=== PATIENT | female | born 1945 | race Caucasian/White ===

== ENCOUNTER → 2016-12-05 | Outpatient (CLI) | payer MEDICARE, OTHER ==
[~2016-12-05] MED LIST: ALPRAZOLAM0.25 MG PO; ASACOL400 MG PO; ASPIRIN325 M2 PO; ASPIRIN81 M1 PO; ATENOLOL25 MG PO; B-121000 MCG PO; BRISDELLE7.5 M1 PO; CALCIUM 600600 M2 PO; CALTRATE 600 +1 TA1 PO; CARAFATE1 G1 PO; DICYCLOMINE HCL10 MG PO; K-DUR 1010 MEQ PO; KLOR-CON 1010 MEQ PO; LOMOTIL 0.025 M1 TA1 PO; MECLIZINE HCL12.5 MG PO; METAMUCIL0.52 GM PO; METOPROLOL SR25 MG PO; MICRO-K10 MEQ PO; NEXIUM40 MG PO; PANTOPRAZOLE40 MG PO; SIMVASTATIN10 MG PO; VITAMIN D1000 IU; VITAMIN D1000 IU PO; VITAMIN D50000 UNIT PO; ZOFRAN ODT4 MG SL
== END | disposition home or self-care (01) ==
LOC: RAD 12:00
DX: M47.892 Other spondylosis, cervical region (principal); M48.02 Spinal stenosis, cervical region; Z87.39 Personal history of other diseases of the musculoskeletal system and connective tissue

== ENCOUNTER → 2016-12-12 | Outpatient (CLI) | payer MEDICARE, OTHER | END | disposition home or self-care (01) | LOC: MAMMO 00:12 | DX: Z12.31 Encounter for screening mammogram for malignant neoplasm of breast (principal); Z87.39 Personal history of other diseases of the musculoskeletal system and connective tissue ==

== ENCOUNTER → 2017-06-23 | Outpatient (CLI) | payer MEDICARE, OTHER | END | disposition home or self-care (01) | LOC: RAD 06-20 11:30 | DX: Z13.820 Encounter for screening for osteoporosis (principal); Z78.0 Asymptomatic menopausal state; Z90.710 Acquired absence of both cervix and uterus ==

== ENCOUNTER → 2018-02-18 | Outpatient (CLI) | payer MEDICARE, OTHER ==
[~2018-02-18] MED LIST changes: +HYDROCHLOROTHIA25 M1 PO; +PAXIL10 MG PO
== END | disposition home or self-care (01) ==
LOC: MAMMO 10:04
DX: Z12.31 Encounter for screening mammogram for malignant neoplasm of breast (principal)

== ENCOUNTER → 2018-03-04 | Day surgery (SDC) | payer MEDICARE, OTHER ==
[~2018-03-04] VITALS: Ht 167.6 cm
--- NOTE | ~2018-03-04 | O ---
[place], [place] OPERATIVE NOTE NAME: TEA LOREDO UNIT #: [id number] ROOM: DOCTOR: CHALINO GALLOWAY MD BIRTHDATE: [birth year] DOS: 03/04/2018 GASTROENDOSCOPIC REPORT INDICATIONS: This is a 73-year-old patient who has presented with dyspepsia, dysphagia. On Nexium 40 mg daily. ALLERGIES: No known medications. PAST MEDICAL HISTORY: Associated with hypercholesterolemia, hypertension, torticollis and tremens. FAMILY HISTORY: Noncontributory. SOCIAL HISTORY: Nonsmoker. Social alcohol consumer. PAST SURGICAL HISTORY: Cholecystectomy, hysterectomy, tubal, elbow. MEDICATIONS: Including Nexium 40 mg daily. PROCEDURE: Today's procedure part of investigation is panendoscopy plus biopsy plus esophageal balloon dilation. PREMEDICATION: Propofol. SCOPE: Olympus forward-viewing gastroscope Q10 video. REPORT: After putting the patient in left lateral position and application of lubricant to the scope, the scope was introduced, thereafter under direct visualization advanced through the length of esophagus without difficulty. A 2 cm hiatal hernia was noticed. Gastric pouch was entered, diffuse gastritis seen. Antrum was biopsied for H. pylori. Duodenal bulb, second and third part within normal limits. Scope was gradually withdrawn along the lesser curvature. A balloon size 18 was introduced into the distal esophagus, dilated to that size. Particularly, the stricture was at cervical esophagus which was handled with balloon size 17. Air was suctioned out. The patient was extubated, tolerated the procedure well. IMPRESSION: Benign esophageal stricture in upper esophagus status post balloon dilation to size 17, diffuse gastritis, status post biopsy for Helicobacter pylori, the patient is already on Nexium 40 mg daily, hiatal hernia as identified above. PLAN AND DISCUSSION: Antireflux measures, elevation of the head of the bed 6-inch all the time. Gaviscon as antacid of choice. Follow up in the office for routine management with you in 2 weeks, follow up with us in [facility]. Thank you very much indeed. [place], [place] OPERATIVE NOTE NAME: TEA LOREDO UNIT #: [id number] ROOM: DOCTOR: CHALINO GALLOWAY MD BIRTHDATE: [birth year] CHALINO GALLOWAY MD CM:EVELINORD:OPERATIVE NOTE [id number] CHALINO GALLOWAY MD 03/04/18 1355 interface
[2018-03-04 12:00] VITALS: BP 164/87
[2018-03-04 13:34] VITALS: BP 126/70
[2018-03-04 14:04] VITALS: BP 123/73
== END | disposition home or self-care (01) ==
LOC: SDC 02-27 12:30
DX: K29.50 Unspecified chronic gastritis without bleeding (principal); K22.2 Esophageal obstruction; K44.9 Diaphragmatic hernia without obstruction or gangrene; K21.9 Gastro-esophageal reflux disease without esophagitis; I10 Essential (primary) hypertension; E78.00 Pure hypercholesterolemia, unspecified; Z90.49 Acquired absence of other specified parts of digestive tract; Z90.710 Acquired absence of both cervix and uterus; Z98.890 Other specified postprocedural states; Z79.899 Other long term (current) drug therapy; Z82.49 Family history of ischemic heart disease and other diseases of the circulatory system; Z98.51 Tubal ligation status

== ENCOUNTER → 2018-10-27 | Outpatient (CLI) | payer MEDICARE, OTHER | END | disposition home or self-care (01) | LOC: RAD 11:27 | DX: M25.462 Effusion, left knee (principal) ==

== ENCOUNTER 2019-03-26 15:18 | Emergency (ER) | payer MEDICARE, OTHER ==
[~2019-03-26] VITALS: Ht 167.6 cm; Wt 68.0 kg
[2019-03-26 15:21] VITALS: BP 151/73
[2019-03-26] MEDS ORDERED: NYSTATIN CREAM15 GM T (15:59)
== END 2019-03-26 16:20 | disposition home or self-care (01) ==
LOC: ED 15:18
DX: L30.8 Other specified dermatitis (principal); I10 Essential (primary) hypertension; K21.9 Gastro-esophageal reflux disease without esophagitis; Z79.899 Other long term (current) drug therapy; Z79.82 Long term (current) use of aspirin

== ENCOUNTER → 2019-10-18 | Outpatient (CLI) | payer MEDICARE, OTHER ==
[~2019-10-18] MED LIST changes: +NYSTATIN CREAM15 GM T
--- NOTE | 2019-10-18 08:47 | NUR ---
SPEECH PATHOLOGY Outpatient MBS completed as per orders. Patient was alert and cooperative and has been experiencing choking episodes as well as excess phlegm. Patient's medical history includes GERD, HTN and torticollis. Patient consumes a regular diet and thin liquid. Oral peripheral exam revealed natural teeth in good condition. Oral skills were WNL in terms of strength, ROM and coordination. Patient was assessed with puree, solids and thin liquid. Results revealed oral and pharyngeal swallowing skills WNL with all consistencies. Recommend patient remain on regular diet. Recommend patient follow reflux precautions which she was educated on. She verbalized understanding and agreement of information provided. Dictated report to follow. Thank you for this referral. YENNY WHITEHEAD [facility]-[employer] EQU[employer]MENT INSTALLER AND SERVICER
== END | disposition home or self-care (01) ==
LOC: RAD/SH 07:49 → MAMMO 09:30
DX: Z12.31 Encounter for screening mammogram for malignant neoplasm of breast (principal); R13.10 Dysphagia, unspecified

== ENCOUNTER → 2019-12-24 | Outpatient (CLI) | payer MEDICARE, OTHER ==
[~2019-12-24] MED LIST changes: +CARAFATE1 GM PO; +PROTONIX40 MG PO
== END | disposition home or self-care (01) ==
LOC: COVID19 00:32
DX: Z01.818 Encounter for other preprocedural examination (principal); Z11.59 Encounter for screening for other viral diseases

== ENCOUNTER → 2019-12-30 | Day surgery (SDC) | payer MEDICARE, OTHER ==
[~2019-12-30] VITALS: Ht 167.6 cm; Wt 69.9 kg
[2019-12-30 08:56] VITALS: BP 143/86
[2019-12-30 09:43] VITALS: BP 103/63
[2019-12-30 10:04] VITALS: BP 118/75
[2019-12-30 10:19] VITALS: BP 126/79
== END ==
LOC: SDC 12-27 13:15
DX: K29.50 Unspecified chronic gastritis without bleeding (principal); K21.9 Gastro-esophageal reflux disease without esophagitis; I10 Essential (primary) hypertension; E78.5 Hyperlipidemia, unspecified; K44.9 Diaphragmatic hernia without obstruction or gangrene; Z98.890 Other specified postprocedural states; Z79.899 Other long term (current) drug therapy; Z83.3 Family history of diabetes mellitus; Z82.49 Family history of ischemic heart disease and other diseases of the circulatory system

== ENCOUNTER → 2021-04-02 | Outpatient (CLI) | payer OTHER | END | disposition home or self-care (01) | LOC: MAMMO 08:10 | PROVIDERS: ATTEND Family Medicine | DX: Z12.31 Encounter for screening mammogram for malignant neoplasm of breast (principal); N64.89 Other specified disorders of breast ==

== ENCOUNTER → 2022-05-31 | Outpatient (CLI) | payer OTHER | END | disposition home or self-care (01) | LOC: RAD 15:37 | PROVIDERS: ATTEND Family Medicine | DX: M16.11 Unilateral primary osteoarthritis, right hip (principal); M76.9 Unspecified enthesopathy, lower limb, excluding foot ==

== ENCOUNTER → 2022-06-17 | Outpatient (CLI) | payer OTHER | END | disposition home or self-care (01) | LOC: RAD 13:18 | PROVIDERS: ATTEND Family Medicine | DX: M47.816 Spondylosis without myelopathy or radiculopathy, lumbar region (principal); M51.16 Intervertebral disc disorders with radiculopathy, lumbar region; M48.061 Spinal stenosis, lumbar region without neurogenic claudication; M25.551 Pain in right hip ==

== ENCOUNTER → 2022-08-26 | Outpatient (CLI) | payer OTHER | END | disposition home or self-care (01) | LOC: LAB 12:38 → MRI 13:00 | PROVIDERS: ATTEND Family Medicine | DX: Z01.818 Encounter for other preprocedural examination (principal); M21.70 Unequal limb length (acquired), unspecified site; M47.27 Other spondylosis with radiculopathy, lumbosacral region; M47.816 Spondylosis without myelopathy or radiculopathy, lumbar region; M48.061 Spinal stenosis, lumbar region without neurogenic claudication; M48.07 Spinal stenosis, lumbosacral region; M25.78 Osteophyte, vertebrae; M16.11 Unilateral primary osteoarthritis, right hip ==

== ENCOUNTER → 2023-03-07 | Outpatient (CLI) | payer OTHER | END | disposition home or self-care (01) | LOC: RAD 02-28 13:30 | PROVIDERS: ATTEND Family Medicine | DX: M85.852 Other specified disorders of bone density and structure, left thigh (principal) ==

== ENCOUNTER → 2023-06-20 | Outpatient (CLI) | payer OTHER | END | disposition home or self-care (01) | LOC: RAD 11:20 | PROVIDERS: ATTEND Family Medicine | DX: M47.812 Spondylosis without myelopathy or radiculopathy, cervical region (principal); M25.78 Osteophyte, vertebrae; M48.02 Spinal stenosis, cervical region ==